=== PATIENT | male | born 1970 | race African-American/Black ===

== ENCOUNTER 2021-05-14 17:04 | Emergency (ER) | payer OTHER, SELFPAY ==
--- NOTE | ~2021-05-14 | XR_ITS ---
EXAMINATION: CR ELBOW, LEFT CLINICAL INFORMATION: Swelling, warmth and pain. COMPARISON: None TECHNIQUE: Four views of the left elbow. FINDINGS: Evaluation is limited due to nonstandard positioning. Patient was unable to straighten his arm. There is a prominent bone fragment seen along the radial aspect of the capitellum. 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 Adjacent heterotopic bone formation is seen, possibly due to enthesopathic changes. No definite acute fracture line is seen. No definite elbow joint effusion is noted. XR/XR elbow LT 2V IMPRESSION: 1. No definite acute fracture lucency is appreciated. However, since evaluation is limited due to nonstandard positioning, repeat short interval follow-up radiograph is recommended for reassessment. 2. 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
[2021-05-14 17:19] VITALS: BP 144/102; PULSE 86; RESP 16; TEMP 36.4; O2SAT 98; BMI 23.7
--- NOTE | 2021-05-14 18:16 | ED_ITS ---
HPI - Extremity Problem General Chief complaint: Extremity Problem Stated complaint: work inj Source: patient Mode of arrival: ambulatory Limitations: no limitations History of Present Illness HPI Narrative: 50-year-old male presents with left elbow pain with swelling and erythema. He does not report any significant trauma or injury, but does work at [employer] and does heavy lifting. He does have a past medical history of gout, takes no medications, and does not report any insect or animal bites. Did not report fevers or chills, chest pain or pressure, palpitations, shortness of breath, shortness of breath on exertion, abdominal pain, abdominal distention, dysuria, hematuria, nausea, vomiting, diarrhea, constipation. MD Complaint: extremity pain and extremity swelling Onset (ago): day(s) (2) Pain Consistency: constant Location: left Severity scale (1-10): 6 Quality: burning and aching Radiation: proximal Relieving factors: nothing Exacerbating factors: range of motion and palpation Associated symptoms: denies other symptoms Context: history of gout Related Data Previous Rx's Medication Instructions Recorded doxycycline monohydrate 100 mg 100 mg PO BID 10 Days #20 cap 05/14/21 capsule ibuprofen 600 mg tablet 600 mg PO Q6H PRN #60 tab 05/14/21 Allergies Allergy/AdvReac Type Severity Reaction Status Date / Time No Known Allergies Allergy Verified 05/14/21 18:16 Review of Systems Review of Systems: Constitutional: No Fever, No Chills ENT/Mouth: No Ear Pain, No Hoarseness, No sore throat Eyes: No Eye Pain, No Swelling, No Redness, No Foreign Body Cardiovascular: No Chest Pain, No SOB Respiratory: No Cough, No Dyspnea Gastrointestinal: No Nausea, No Vomiting, No Diarrhea, No abdominal Pain Genitourinary: No Dysuria, No Hematuria Musculoskeletal: positive left elbow pain swelling and erythema No Myalgias Skin: No Skin lacerations, No rash Neuro: No Weakness, No Numbness, No Paresthesias, No Loss of Consciousness, No Dizziness, No Headache Psych: No Anxiety/Panic, No Depression Heme/Lymph: no easy bruising, no Lymphadenopathy Endocrine: No Polyuria, No Polydipsia Yes all other systems are reviewed and are negative PMFSH Past Medical History Attestation statement: The following information was validated with the patient. Source: old records reviewed Social History Social History Advance Directives: No Advance Directives Information Provided: No Physical Exam Vital Signs: Vital Signs: Last Vital Signs Temp 97.6 F 05/14/21 17:19 Pulse 95 05/14/21 19:37 Resp 16 05/14/21 19:37 BP 155/97 H 05/14/21 19:37 Pulse Ox 100 05/14/21 19:37 Body Mass Index 23.7 Appearance: Alert. Oriented X3. Mild distress. Appears nontoxic. Eyes: Pupils equal, round and reactive to light. Sclera nonicteric. ENT: Pharynx normal. Moist mucous membranes. Neck: Normal inspection. Neck supple. No cervical lymphadenopathy noted. CVS: Normal heart rate and rhythm. Pulses normal. Respiratory: No respiratory distress. Breath sounds normal. Abdomen: Soft and nontender. Skin: Skin warm and dry. Normal skin color. Normal skin turgor. Extremities: Left elbow visibly swollen, tender to palpation, warm to touch, decreased range of motion with flexion-extension, has full range of motion with pronation and supination of the wrist. Strength 5/5. Brisk capillary refill in equal pulses. Neuro: No motor deficit. No sensory deficit. Cranial nerves 2-12 intact. Course Course Course Narrative: 50-year-old male presents with left elbow pain swelling and erythema. Will order labs and x-rays. He does have decreased range of motion with flexion and extension because of the pain to the left elbow. X-rays indicate old fracture. Discussion with Orthopedics on-call, plan is for patient to follow-up in the office. We will treat with doxycycline for cellulitis, and apply Ed wrap for comfort. Patient verbalized understanding of and agrees to plan of care discharge home. Consultations Consultation #1: [place] Time: 20:00 MDM - Extremity (Nontraumatic) MDM Narrative Medical decision making narrative: Arthritis, bursitis, effusion Differential Diagnosis Differential diagnosis: Likely gout and cellulitis Medical Records Attestation: I reviewed the patient's medical records. Lab Data Attestation: I reviewed the patient's lab results. Result diagrams: 05/14/21 19:11 05/14/21 18:49 Labs: Lab Results 05/14/21 05/14/21 05/14/21 Range/Units 18:48 18:49 19:11 WBC 7.0 (4.8-10.8) X10*3/uL RBC 5.85 H (4.60-5.80) X10*6/uL Hgb 15.2 (14.0-18.0) g/dl Hct 45.4 (42-52) % MCV 77.6 L (80-98) fL MCH 26.0 L (27.0-33.0) pg MCHC 33.5 (31.0-36.0) g/dl RDW 12.9 (11.0-16.0) % Plt Count 283 (160-400) X10*3/uL MPV 9.3 L (9.4-12.4) fL Immature Gran % (Auto) 0.1 (0.0-0.4) % Neut % (Auto) 55.6 (45-73) % Lymph % (Auto) 28.1 (20-40) % Mccreary % (Auto) 13.8 H (2-11) % Eos % (Auto) 2.0 (0-4) % Baso % (Auto) 0.4 (0-2) % Lymph # (Auto) 2.0 (1.2-4.9) X10*3/uL Mccreary # (Auto) 1.0 (0.1-1.2) X10*3/uL Eos # (Auto) 0.1 (0.0-0.4) X10*3/uL Baso # (Auto) 0.0 (0.0-0.2) X10*3/uL Abs Immat Gran (auto) 0.01 (0.00-0.03) X10*3/uL Absolute Neuts (auto) 3.9 (2.0-8.3) X10*3/uL Absolute Nucleated RBC 0.000 (0.0-0.012) X10*3/uL Nucleated RBC % (auto) 0.0 (0.0-0.2) /100WBC Sodium 140 (135-145) mmol/L Potassium 4.0 (3.3-5.1) mmol/L Chloride 106 (96-108) mmol/L Carbon Dioxide 22 (22-29) mmol/L Anion Gap 16 (12-20) BUN 12 (9-16) mg/dL Creatinine 1.22 (0.5-1.4) mg/dL Estim Creat Clear Calc 77.1 Estimated GFR > 60 Random Glucose 111 (60-115) mg/dL Lactic Acid 2.0 (0.5-2.0) mmol/L Uric Acid 6.5 (3.4-7.0) mg/dL Calcium 8.9 (8.4-10.2) mg/dL Imaging Data Left elbow x-ray: Attestation: I personally reviewed and interpreted this imaging study as follows: Radiologist's impression: EXAMINATION: CR ELBOW, LEFT CLINICAL INFORMATION: Swelling, warmth and pain.? COMPARISON: None? TECHNIQUE: Four views of the left elbow. FINDINGS: Evaluation is limited due to nonstandard positioning. Patient was unable to straighten his arm. There is a prominent bone fragment seen along the radial aspect of the capitellum. 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 Adjacent heterotopic bone formation is seen, possibly due to enthesopathic changes. No definite acute fracture line is seen. No definite elbow joint effusion is noted.? XR/XR elbow LT 2V IMPRESSION: ? 1. No definite acute fracture lucency is appreciated. However, since evaluation is limited due to nonstandard positioning, repeat short interval follow-up radiograph is recommended for reassessment. 2. 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 Discharge Plan Discharge Clinical Impression: Cellulitis Qualifiers: Site of cellulitis: extremity Site of cellulitis of extremity: upper extremity Laterality: left Qualified Code(s): L03.114 - Cellulitis of left upper limb Elbow fracture, left Qualifiers: Encounter type: initial encounter Fracture type: closed Qualified Code(s): S42.402A - Unspecified fracture of lower end of left humerus, initial encounter for closed fracture Patient Disposition: Home, Self-Care Instructions: Elbow Fracture (ED), Cellulitis (ED) Additional Instructions: You were evaluated for left elbow pain and swelling. X-ray show an old fracture. I am treating you for cellulitis with doxycycline. Please take this medication twice a day for the next 10 days. Please follow-up with orthopedics. They will call you with an appointment. Use Tylenol and Motrin as needed for pain management. Thank you for choosing this emergency department for evaluation. Please follow-up with primary care physician as needed. Return to the emergency department for any new, concerning, or worsening symptoms. Prescriptions: New doxycycline monohydrate 100 mg capsule 100 mg PO BID 10 Days Qty: 20 RF: 0 ibuprofen 600 mg tablet 600 mg PO Q6H PRN (Reason: pain) Qty: 60 RF: 0 Referrals: Robin Holbrook PA-C [Physician Process Engineering Technician] - 2 days (Old elbow fracture) Stand Alone Forms: Work/School Release
[2021-05-14] MEDS: Morphine Sulfate 4 MG/ML CARTRIDGE IVPUSH (18:50)
[2021-05-14 19:25] LABS: Anion Gap 16 (12-20); Blood Urea Nitrogen 12 mg/dL (9-16); Calcium 8.9 mg/dL (8.4-10.2); Carbon Dioxide 22 mmol/L (22-29); Chloride 106 mmol/L (96-108); Creatinine Clr Calc Pharmacy 77.1; Estimated Glomerular Filt Rate > 60; Glucose Random 111 mg/dL (60-115); Sodium 140 mmol/L (135-145); Uric Acid 6.5 mg/dL (3.4-7.0)
[2021-05-14 19:26] LABS: MANUAL DIFF FLAG NO
[2021-05-14 19:27] LABS: Basophils Percent Auto 0.4 % (0-2); Eosinophils Absolute Auto 0.1 X10*3/uL (0.0-0.4); Hematocrit 45.4 % (42-52); Hemoglobin 15.2 g/dl (14.0-18.0); Imm Gran Abs Auto 0.01 X10*3/uL (0.00-0.03); Imm Gran Pct Auto 0.1 % (0.0-0.4); Lymphocytes Percent Auto 28.1 % (20-40); Mean Corpuscular HGB Conc 33.5 g/dl (31.0-36.0); Mean Corpuscular Volume 77.6 fL (80-98); Mean Platelet Volume 9.3 fL (9.4-12.4); Monocytes Percent Auto 13.8 % (2-11); Neutrophils Absolute Auto 3.9 X10*3/uL (2.0-8.3); Neutrophils Percent Auto 55.6 % (45-73); Platelet Count 283 X10*3/uL (160-400); Red Blood Count 5.85 X10*6/uL (4.60-5.80); Red Cell Distribution Width 12.9 % (11.0-16.0)
[2021-05-14 19:37] VITALS: BP 155/97; PULSE 95; RESP 16; O2SAT 100
[2021-05-14] MEDS: Ibuprofen 600 MG TABLET PO (20:31)
[2021-05-16 21:12] LABS: Lyme Abs Screen <0.90 index
== END 2021-05-14 20:27 | disposition home or self-care (01) ==
PROVIDERS: Nurse Practitioner Family; Emergency Provider Emergency Medicine
DX: L03.114 Cellulitis of left upper limb (principal); S42.402A Unspecified fracture of lower end of left humerus, initial encounter for closed fracture; X58.XXXA Exposure to other specified factors, initial encounter; Y93.9 Activity, unspecified; Y92.9 Unspecified place or not applicable; Y99.9 Unspecified external cause status
CPT/HCPCS: 36415; 73070; 80048; 83605; 84550; 85025; 86617; 86618; 87040; 96374; 99284; J2270